=== PATIENT | female | born 1965 ===

== ENCOUNTER 2017-05-04 15:36 | Emergency (ER) | payer MEDICAID ==
[2017-05-04 15:50] VITALS: BMI 25.4
[2017-05-04 15:52] VITALS: TEMP 99; O2SAT 100
--- NOTE | 2017-05-04 16:03 | ED PDOC ---
Arrival/HPI - General Chief Complaint: Cough, Cold, Congestion Time Seen by Provider: 05/04/17 15:49 Historian: Patient - History of Present Illness Narrative History of Present Illness (Text): 05/04/17 16:03 51 y/o female, pmh including asthma/gastric bypass, nkda, post menopausal, c/o coughing and itching rash on the body x 2 days. Pt. stated that she has productive coughing, associated with itching hives on the body, no fever or chills, no night sweat, no recent traveling for the past 4 weeks, no night sweat , no numbness or tingling, no other medical or psychological complaints. 05/04/17 16:19 Past Medical History - Provider Review Nursing Documentation Reviewed: Yes - Infectious Disease Hx of Infectious Diseases: None - Tetanus Immunization Tetanus Immunization: Unknown - Cardiac Hx Cardiac Disorders: Yes Hx Hypertension: Yes (no longer since gastric sx) - Pulmonary Hx Respiratory Disorders: Yes Hx Asthma: Yes (never hospitalized) Hx Sleep Apnea: Yes (no longer) - Neurological Hx Neurological Disorder: No - HEENT Hx HEENT Disorder: No - Renal Hx Renal Disorder: No - Endocrine/Metabolic Hx Endocrine Disorders: Yes Hx Diabetes Mellitus Type 2: Yes (no longer since gastric sx) - Hematological/Oncological Hx Blood Disorders: Yes Hx Cancer: Yes (vulvar) - Integumentary Hx Dermatological Disorder: No - Musculoskeletal/Rheumatological Hx Musculoskeletal Disorders: No Hx Falls: No - Gastrointestinal Hx Gastrointestinal Disorders: Yes Hx Gastritis: Yes Hx Gastroesophageal Reflux: Yes - Genitourinary/Gynecological Hx Genitourinary Disorders: Yes Hx Reproductive Disorders: Yes (CANCER VULVA- resolved) Hx Urinary Tract Infection: Yes (1 year ago) - Psychiatric Hx Psychophysiologic Disorder: No Hx Depression: No Hx Substance Use: No - Past Surgical History Past Surgical History: Non-Contributing - Surgical History Hx Gastric Bypass Surgery: Yes (2014 , 2016) Hx Hysterectomy: Yes (oophorectomy bilat) - Anesthesia Hx Anesthesia: Yes Hx Anesthesia Reactions: No Hx Malignant Hyperthermia: No - Suicidal Assessment Feels Threatened In Home Enviroment: No Family/Social History - Physician Review Nursing Documentation Reviewed: Yes Family/Social History: Unknown Family HX Smoking Status: Never Smoked Hx Alcohol Use: No Hx Substance Use: No Hx Substance Use Treatment: No Allergies/Home Meds Allergies/Adverse Reactions: Allergies No Known Allergies Allergy (Verified 05/04/17 15:50) Home Medications: Home Meds Medication Instructions Recorded Confirmed oxyCODONE/Acetaminophen [Percocet 1 tab PO Q4 PRN 03/29/16 03/29/16 5/325 mg Tab] Review of Systems - Review of Systems Constitutional: absent: Fatigue, Fevers Eyes: absent: Vision Changes ENT: absent: Hearing Changes Respiratory: Cough, Sputum. absent: SOB, Wheezing Cardiovascular: absent: Chest Pain Gastrointestinal: absent: Abdominal Pain, Nausea, Vomiting Skin: Rash, Pruritis, Skin Lesions. absent: Laceration, Abscess, Ulcer, Cellulitis Psychiatric: absent: Anxiety, Depression, Suicidal Ideation Physical Exam Vital Signs Reviewed: Yes Vital Signs Temp Pulse Resp BP Pulse Ox 05/04/17 17:10 69 18 158/85 H 100 05/04/17 15:52 99.0 F 73 17 160/90 H 100 Temperature: Afebrile Blood Pressure: Hypertensive Pulse: Regular Respiratory Rate: Normal Appearance: Positive for: Well-Appearing, Non-Toxic, Comfortable Pain Distress: None Mental Status: Positive for: Alert and Oriented X 3 - Systems Exam Head: Present: Atraumatic, Normocephalic Pupils: Present: PERRL Extroacular Muscles: Present: EOMI Conjunctiva: Present: Normal Mouth: Present: Moist Mucous Membranes Neck: Present: Normal Range of Motion Respiratory/Chest: Present: Clear to Auscultation, Good Air Exchange. No: Respiratory Distress, Accessory Muscle Use Cardiovascular: Present: Regular Rate and Rhythm, Normal S1, S2, Other (no pedal edema). No: Murmurs Abdomen: Present: Normal Bowel Sounds. No: Tenderness, Distention, Peritoneal Signs, Rebound, Guarding Back: Present: Normal Inspection Upper Extremity: Present: Normal Inspection. No: Cyanosis, Edema Lower Extremity: Present: Normal Inspection. No: Edema Neurological: Present: GCS=15, Speech Normal, Motor Func Grossly Intact, Gait Normal, Memory Normal Skin: Present: Warm, Dry, Rashes (bilateral upper and lower extremities/chest/ back noted with uriticaria hives that's blanchable with no central insect bite johnson, no cellulitis or streaking, no ulcers. ), Normal Color Psychiatric: Present: Alert, Oriented x 3, Normal Insight, Normal Concentration Medical Decision Making ED Course and Treatment: 05/04/17 16:12 -labs -IVF/benadryl/pepcid/solumedrol -chest xray -observe and reassess 05/04/17 17:24 -Labs are non-significant -Chest xray show bronchial thickening with no consolidation, zithromycin 500mg po ordered. -Itching resolved, hives significantly resolved, lung is clear to ausucultate, will discharge home. -Discharge home with zithromax, prednisone, albuterol MDI, benadryl, pepcid, stay hydrated, bed rest, follow up with your own pmd and jewel flat surfacer within 2 days, return to the ER for any new or worsening signs or symptoms. - Lab Interpretations Lab Results: 05/04/17 16:15 05/04/17 16:50 Lab Results 05/04/17 16:50: Sodium 136, Potassium 3.6, Chloride 100, Carbon Dioxide 32, Anion Gap 8 L, BUN 16, Creatinine 0.6, Est GFR ( Amer) > 60, Est GFR (Non -Af Amer) > 60, Random Glucose 83, Calcium 9.0, Total Bilirubin 0.6, AST 27, ALT 34, Alkaline Phosphatase 77, Total Protein 7.0, Albumin 3.9, Globulin 3.1, Albumin/Globulin Ratio 1.3 05/04/17 16:15: WBC 6.2 D, RBC 4.42, Hgb 14.0, Hct 42.6, MCV 96.4, MCH 31.7, MCHC 32.9, RDW 13.3, Plt Count 191, MPV 11.0, Gran % 55.6, Lymph % (Auto) 32.7, [place] % (Auto) 8.5 H, Eos % (Auto) 2.9, Baso % (Auto) 0.3, Gran # 3.46, Lymph # 2.0, [place] # 0.5, Eos # 0.2, Baso # 0.02 I have reviewed the lab results: Yes Interpretation: No clinic. lab abnormalty - RAD Interpretation Radiology Orders: 05/04/17 16:08 CHEST PORTABLE [RAD] Stat no active disease Director News: Radiologist - Medication Orders Current Medication Orders: Discontinued Medications Azithromycin (Zithromax) 500 mg PO STAT STA PRN Reason: Protocol Stop: 05/04/17 17:25 Last Admin: 05/04/17 17:45 Dose: 500 mg Diphenhydramine HCl (Benadryl) 50 mg IVP STAT STA Stop: 05/04/17 16:09 Last Admin: 05/04/17 16:24 Dose: 50 mg Famotidine (Pepcid) 20 mg IVP STAT STA Stop: 05/04/17 16:09 Last Admin: 05/04/17 16:24 Dose: 20 mg Sodium Chloride (Sodium Chloride 0.9%) 1,000 mls @ 999 mls/hr IV .Q1H1M STA Stop: 05/04/17 17:08 Last Admin: 05/04/17 16:24 Dose: 999 mls/hr Methylprednisolone (Solu-Medrol) 125 mg IVP STAT STA Stop: 05/04/17 16:09 Last Admin: 05/04/17 16:24 Dose: 125 mg - 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 Disposition/Present on Arrival - Present on Arrival Any Indicators Present on Arrival: No History of DVT/PE: No History of Uncontrolled Diabetes: No Urinary Catheter: No History of Decub. Ulcer: No History Surgical Site Infection Following: Bariatric Surgery, None - Disposition Have Diagnosis and Disposition been Completed?: Yes Diagnosis: Hives, Bronchitis Disposition: HOME/ ROUTINE Disposition Time: 17:26 Patient Plan: Discharge Condition: IMPROVED Print Language: YORUBA Additional Instructions: Discharge home with zithromax, prednisone, albuterol MDI, benadryl, pepcid, stay hydrated, bed rest, follow up with your own pmd and jewel flat surfacer within 2 days, return to the ER for any new or worsening signs or symptoms. Prescriptions: Albuterol HFA [Ventolin HFA 90 mcg/actuation (8 g)] 2 puff IH [id number] PRN #1 in PRN Reason: Other Azithromycin [Zithromax] 250 mg PO DAILY #4 tab DiphenhydrAMINE [Benadryl] 50 mg PO QID PRN #20 cap PRN Reason: Other Famotidine [Pepcid] 20 mg PO BID #14 tab predniSONE [Prednisone] 2 tab PO DAILY #8 tab Referrals: Marguerite Resendiz DO [Primary Care Provider] - Follow up with primary Mariama Kuhn MD [Staff Provider] - Follow up with primary Forms: WORK NOTE
[2017-05-04] MEDS ORDERED: Sodium Chloride 0.9% 1,000 ML IV STA (16:08)
[2017-05-04] MEDS ORDERED: DiphenhydrAMINE 50 mg/ml Inj IVP STA (16:08)
[2017-05-04 16:22] LABS: ADD MANUAL DIFF? NO
[2017-05-04 16:25] LABS: BASO # 0.02 K/mm3 (0.0-2.0); BASO % 0.3 % (0.0-3.0); EOS # 0.2 (0.0-0.7); EOS % 2.9 % (1.5-5.0); GRAN # 3.46 (1.4-6.5); GRAN % 55.6 % (50.0-68.0); HEMATOCRIT 42.6 % (36.0-48.0); LYMPH % 32.7 % (22.0-35.0); MEAN CELL VOLUME 96.4 fL (80.0-105.0); MEAN CORPUSCULAR HEMOGLOBIN 31.7 pg (25.0-35.0); MEAN CORPUSCULAR HGB CONC 32.9 g/dl (31.0-37.0); MONO # 0.5 (0.1-0.6); MONO % 8.5 % (1.0-6.0); PLATELET COUNT 191 10^3/uL (120.0-450.0); RED CELL DISTRIBUTION WIDTH 13.3 % (11.5-14.5); WHITE BLOOD COUNT 6.2 10^3/ul (4.5-11.0)
[2017-05-04 17:11] VITALS: BP 158/85; PULSE 69; RESP 18
[2017-05-04 17:18] LABS: ALB/GLOB RATIO 1.3 (1.1-1.8); ALKALINE PHOSPHATASE 77 U/L (38-133); ALT/SGPT 34 U/L (7-56); AST/SGOT 27 U/L (15-39); BILIRUBIN,TOTAL 0.6 mg/dL (0.2-1.3); BLOOD UREA NITROGEN 16 mg/dL (7-21); CARBON DIOXIDE 32 mmol/L (21-33); CHLORIDE 100 mmol/L (98-107); GFR AFRICAN-AMERICAN > 60; GLUCOSE,RANDOM 83 mg/dL (70-110); POTASSIUM 3.6 mmol/L (3.6-5.0); SODIUM 136 mmol/L (132-148)
--- NOTE | 2017-05-04 18:53 | RAD ---
HISTORY: cough x 2 days COMPARISON: 09/17/2016. FINDINGS: LUNGS: No active pulmonary disease. PLEURA: No significant pleural effusion identified, no pneumothorax apparent. CARDIOVASCULAR: No radiographic findings to suggest acute or significant cardiovascular disease. OSSEOUS STRUCTURES: No significant abnormalities. VISUALIZED UPPER ABDOMEN: Normal. OTHER FINDINGS: None. IMPRESSION: No active disease. No significant interval change compared to the prior examination(s).
== END 2017-05-04 17:50 | disposition home or self-care (01) ==
LOC: ED 15:36
DX: J40 Bronchitis, not specified as acute or chronic (principal); L50.9 Urticaria, unspecified
CPT/HCPCS: 71010; 80053; 85025; 96374; 96375; 99283; J1200; J2930; J7040

== ENCOUNTER 2017-06-12 17:39 | Emergency (ER) | payer MEDICAID ==
[2017-06-12 17:51] VITALS: BP 161/94; PULSE 62; RESP 18; TEMP 97.8; O2SAT 99; BMI 28.3
--- NOTE | 2017-06-12 17:53 | ED PDOC ---
Arrival/HPI - General Chief Complaint: Back Pain Time Seen by Provider: 06/12/17 17:52 Historian: Patient - History of Present Illness Narrative History of Present Illness (Text): 06/12/17 18:06 This 51 yo female presents to this ED c/o b/l lower back pain, urinary frequency and urgency x 2 days. Patient also stated she had dysuria x 1 week ago. Denies sob, cp, rash, /GI incontinence, saddle anesthesias, urinary retention, dizziness, or rash Time/Duration: Other (see hpi) Context: Home Past Medical History - Provider Review Nursing Documentation Reviewed: Yes - Infectious Disease Hx of Infectious Diseases: None - Tetanus Immunization Tetanus Immunization: Unknown - Reproductive Menopause: Yes - Cardiac Hx Cardiac Disorders: Yes Hx Hypertension: Yes (no longer since gastric sx) - Pulmonary Hx Respiratory Disorders: Yes Hx Asthma: Yes (never hospitalized) Hx Sleep Apnea: Yes (no longer) - Neurological Hx Neurological Disorder: No - HEENT Hx HEENT Disorder: No - Renal Hx Renal Disorder: No - Endocrine/Metabolic Hx Endocrine Disorders: Yes Hx Diabetes Mellitus Type 2: Yes (no longer since gastric sx) - Hematological/Oncological Hx Blood Disorders: Yes Hx Cancer: Yes (vulvar) - Integumentary Hx Dermatological Disorder: No - Musculoskeletal/Rheumatological Hx Musculoskeletal Disorders: No Hx Falls: No - Gastrointestinal Hx Gastrointestinal Disorders: Yes Hx Gastritis: Yes Hx Gastroesophageal Reflux: Yes - Genitourinary/Gynecological Hx Genitourinary Disorders: Yes Hx Reproductive Disorders: Yes (CANCER VULVA- resolved) Hx Urinary Tract Infection: Yes (1 year ago) - Psychiatric Hx Psychophysiologic Disorder: No Hx Depression: No Hx Substance Use: No - Past Surgical History Past Surgical History: Non-Contributing - Surgical History Hx Gastric Bypass Surgery: Yes (2014 , 2016) Hx Hysterectomy: Yes (oophorectomy bilat) - Anesthesia Hx Anesthesia: Yes Hx Anesthesia Reactions: No Hx Malignant Hyperthermia: No - Suicidal Assessment Feels Threatened In Home Enviroment: No Family/Social History - Physician Review Nursing Documentation Reviewed: Yes Family/Social History: No Known Family HX Smoking Status: Never Smoked Hx Alcohol Use: No Hx Substance Use: No Hx Substance Use Treatment: No Allergies/Home Meds Allergies/Adverse Reactions: Allergies No Known Allergies Allergy (Verified 06/12/17 17:46) Review of Systems - Review of Systems Constitutional: Normal. absent: Fatigue, Weight Change, Fevers Eyes: Normal ENT: Normal. absent: Sore Throat Respiratory: Normal. absent: SOB, Cough Cardiovascular: Normal Gastrointestinal: Normal Genitourinary Female: Dysuria, Frequency. absent: Hematuria, Urine Output Changes, Vaginal Bleeding, Vaginal Discharge Musculoskeletal: Back Pain Skin: Normal. absent: Rash, Pruritis Neurological: Normal. absent: Headache, Dizziness Endocrine: Normal Hemo/Lymphatic: Normal Psychiatric: Normal Physical Exam Vital Signs Temp Pulse Resp BP Pulse Ox 06/12/17 17:49 97.8 F 62 18 161/94 H 99 Temperature: Afebrile Blood Pressure: Normal Pulse: Regular Respiratory Rate: Normal Appearance: Positive for: Well-Appearing, Non-Toxic, Comfortable Pain Distress: None Mental Status: Positive for: Alert and Oriented X 3 - Systems Exam Head: Present: Atraumatic, Normocephalic Pupils: Present: PERRL Extroacular Muscles: Present: EOMI Conjunctiva: Present: Normal Mouth: Present: Moist Mucous Membranes Neck: Present: Normal Range of Motion Respiratory/Chest: Present: Clear to Auscultation, Good Air Exchange. No: Respiratory Distress, Accessory Muscle Use Cardiovascular: Present: Regular Rate and Rhythm, Normal S1, S2. No: Murmurs Abdomen: Present: Tenderness (mild suprapubic tenderness), Normal Bowel Sounds. No: Distention, Peritoneal Signs, Rebound, Guarding, McBurney's Point Tender, Rovsing's Sign Present Back: Present: Normal Inspection. No: CVA Tenderness Upper Extremity: Present: Normal Inspection, Normal ROM, NORMAL PULSES, Neurovascularly Intact, Capillary Refill < 2s. No: Cyanosis, Edema Lower Extremity: Present: Normal Inspection, NORMAL PULSES, Normal ROM, Neurovascularly Intact, Capillary Refill < 2 s. No: Edema, CALF TENDERNESS, Temperature Abnormalties Neurological: Present: GCS=15, CN II-XII Intact, Speech Normal, Motor Func Grossly Intact, Normal Sensory Function, Normal Cerebellar Funct, Gait Normal, Memory Normal Skin: Present: Warm, Dry, Normal Color. No: Rashes Psychiatric: Present: Alert, Oriented x 3, Normal Insight, Normal Concentration Medical Decision Making ED Course and Treatment: 06/12/17 19:53 Re-evaluation. Patient feels better. Discussed results and plan with patient who expresses understanding. All questions answered and there is agreement with the plan to discharge home with instructions. Patient stable for discharge. Return if symptoms persist or worsen. Re-evaluation Time: 19:53 Reassessment Condition: Re-examined, Improved - Lab Interpretations Lab Results: Lab Results 06/12/17 18:20: Urine Color Yellow, Urine Appearance Clear, Urine pH 6.0, Ur Specific [place] <= 1.005, Urine Protein Negative, Urine Glucose (UA) Negative, Urine Ketones Negative, Urine Blood Trace-intact H, Urine Nitrate Negative, Urine Bilirubin Negative, Urine Urobilinogen 0.2, Ur Leukocyte Esterase Negative , Urine RBC 5 - 10, Urine WBC 2 - 5, Ur Epithelial Cells 6 - 8 - Medication Orders Current Medication Orders: Famotidine (Pepcid) 40 mg PO STAT STA Stop: 06/12/17 19:53 Discontinued Medications Cephalexin Monohydrate (Keflex) 500 mg PO STAT STA PRN Reason: Protocol Stop: 06/12/17 19:21 Last Admin: 06/12/17 19:44 Dose: 500 mg Naproxen (Anaprox Ds) 550 mg PO STAT STA Stop: 06/12/17 19:07 Last Admin: 06/12/17 19:44 Dose: 550 mg Ondansetron HCl (Zofran Odt) 8 mg PO STAT STA Stop: 06/12/17 19:53 Disposition/Present on Arrival - Present on Arrival Any Indicators Present on Arrival: No History of DVT/PE: No History of Uncontrolled Diabetes: No Urinary Catheter: No History of Decub. Ulcer: No History Surgical Site Infection Following: Bariatric Surgery, None - Disposition Have Diagnosis and Disposition been Completed?: Yes Diagnosis: Urinary tract infection Disposition: HOME/ ROUTINE Disposition Time: 19:55 Patient Plan: Discharge Patient Problems: Current Active Problems Problem Status Onset Urinary tract infection Acute Condition: GOOD Discharge Instructions (ExitCare): Urinary Tract Infection in Women (ED) Additional Instructions: Call Dr. Resendiz, for follow up visit and recheck and urine culture report in 2-3 days. Take medication as instructed with food. Return to emergency if symptoms worsen. Prescriptions: Cephalexin [cephalexin] 500 mg PO BID #10 cap Ondansetron ODT [Zofran ODT] 4 mg PO Q4H PRN #15 odt PRN Reason: Nausea/Vomiting Phenazopyridine HCl [Pyridium] 200 mg PO TID #6 tablet Referrals: Marguerite Resendiz DO [Primary Care Provider] - Follow up with primary
[2017-06-12 18:42] LABS: URINE BILIRUBIN NEGATIVE (NEGATIVE); URINE BLOOD TRACE-INTACT (NEGATIVE); URINE GLUCOSE (UA) NEGATIVE (NEGATIVE); URINE LEUKOCYTE ESTERASE NEGATIVE Leu/uL (NEGATIVE); URINE NITRATE NEGATIVE (NEGATIVE); URINE PROTEIN NEGATIVE mg/dL (<30 mg/dL); URINE UROBILINOGEN 0.2 E.U./dL (<1 E.U./dL)
[2017-06-12 18:43] LABS: URINE APPEARANCE CLEAR (CLEAR); URINE COLOR YELLOW (YELLOW)
[2017-06-12] MEDS ORDERED: Naproxen 550 mg Tab PO STA (19:06)
== END 2017-06-12 20:55 | disposition home or self-care (01) ==
LOC: ED 17:39
DX: N39.0 Urinary tract infection, site not specified (principal)

== ENCOUNTER 2019-02-03 15:57 | Emergency (ER) | payer MEDICAID | END 2019-02-03 17:58 | disposition home or self-care (01) | LOC: ED 15:57 ==

== ENCOUNTER 2019-03-17 16:14 | Emergency (ER) | payer MEDICAID ==
[2019-03-17 16:26] VITALS: BMI 28.3
[2019-03-17] MEDS ORDERED: TDAP Vaccine 0.5 mL Syr IM ONE (16:31)
--- NOTE | 2019-03-17 16:43 | ED PDOC ---
Arrival/HPI - General Chief Complaint: Trauma Time Seen by Provider: 03/17/19 16:21 Historian: Patient - History of Present Illness Narrative History of Present Illness (Text): 03/17/19 16:38 A 53 year old female presents to the emergency department with a complaint of an abrasion to the right knee and pain to the right 4th metatarsal of the foot. The patient notes that she was walking on the street when she tripped on uneven pavement. Patient reports pain and being unable to bear weight on the right foot. The patient denies any other injuries, head trauma/ LOC, fevers, chills, headache, dizziness, chest pain, shortness of breath, dyspnea on exertion, cough, abdominal pain, nausea, vomiting, diarrhea, back pain, neck pain, urinary/bowel changes, or any other complaint. Time/Duration: Prior to Arrival Symptom Course: Unchanged Activities at Onset: Rest, Light Context: Street Past Medical History - Provider Review Nursing Documentation Reviewed: Yes - Infectious Disease Hx of Infectious Diseases: None - Tetanus Immunization Tetanus Immunization: Unknown - Cardiac Hx Cardiac Disorders: Yes Hx Hypertension: Yes (no longer since gastric sx) - Pulmonary Hx Respiratory Disorders: Yes Hx Asthma: Yes (never hospitalized) Hx Sleep Apnea: Yes (no longer) - Neurological Hx Neurological Disorder: No - HEENT Hx HEENT Disorder: No - Renal Hx Renal Disorder: No - Endocrine/Metabolic Hx Endocrine Disorders: Yes Hx Diabetes Mellitus Type 2: Yes (no longer since gastric sx) - Hematological/Oncological Hx Blood Disorders: Yes Hx Cancer: Yes (vulvar) - Integumentary Hx Dermatological Disorder: No - Musculoskeletal/Rheumatological Hx Musculoskeletal Disorders: No Hx Falls: No - Gastrointestinal Hx Gastrointestinal Disorders: Yes Hx Gastritis: Yes Hx Gastroesophageal Reflux: Yes - Genitourinary/Gynecological Hx Genitourinary Disorders: Yes Hx Reproductive Disorders: Yes (CANCER VULVA- resolved) Hx Urinary Tract Infection: Yes - Psychiatric Hx Psychophysiologic Disorder: No Hx Depression: No Hx Substance Use: No - Past Surgical History Past Surgical History: Non-Contributing - Surgical History Hx Gastric Bypass Surgery: Yes (2014 , 2015) Hx Hysterectomy: Yes (oophorectomy bilat) - Anesthesia Hx Anesthesia: Yes Hx Anesthesia Reactions: No Hx Malignant Hyperthermia: No - Suicidal Assessment Feels Threatened In Home Enviroment: No Family/Social History - Physician Review Nursing Documentation Reviewed: Yes Family/Social History: No Known Family HX Smoking Status: Never Smoked Hx Alcohol Use: No Hx Substance Use: No Hx Substance Use Treatment: No Allergies/Home Meds Allergies/Adverse Reactions: Allergies No Known Allergies Allergy (Verified 02/03/19 16:10) Review of Systems - Physician Review All systems were reviewed & negative as marked: Yes - Review of Systems Constitutional: absent: Fevers Respiratory: absent: SOB, Cough Cardiovascular: absent: Chest Pain, WHITE Gastrointestinal: absent: Abdominal Pain, Stool Changes, Diarrhea, Nausea, Vom iting Genitourinary Female: absent: Urine Output Changes Musculoskeletal: Other (pain to 4th metatarsal of right foot. ). absent: Back Pain, Neck Pain Neurological: absent: Headache, Dizziness Physical Exam Vital Signs Reviewed: Yes Temperature: Afebrile Blood Pressure: Normal Pulse: Regular Respiratory Rate: Normal Appearance: Positive for: Well-Appearing, Non-Toxic, Comfortable Pain Distress: None Mental Status: Positive for: Alert and Oriented X 3 - Systems Exam Head: Present: Atraumatic, Normocephalic Pupils: Present: PERRL Extroacular Muscles: Present: EOMI Conjunctiva: Present: Normal Mouth: Present: Moist Mucous Membranes Neck: Present: Normal Range of Motion Respiratory/Chest: Present: Clear to Auscultation, Good Air Exchange. No: Respiratory Distress, Accessory Muscle Use Cardiovascular: Present: Regular Rate and Rhythm, Normal S1, S2. No: Murmurs Abdomen: No: Tenderness, Distention, Peritoneal Signs Back: Present: Normal Inspection Upper Extremity: Present: Normal Inspection. No: Cyanosis, Edema Lower Extremity: Present: NORMAL PULSES, Other (superficial abrasions noted on the toes. ). No: Edema Neurological: Present: GCS=15, CN II-XII Intact, Speech Normal Skin: Present: Warm, Dry, Normal Color. No: Rashes Psychiatric: Present: Alert, Oriented x 3, Normal Insight, Normal Concentration Medical Decision Making ED Course and Treatment: 03/17/19 16:44 Impression: A 53 year old female presents to the emergency department s/p fall with complaint of abrasion to right knee and pain to 4th metatarsal of left foot. Plan: -- Right Foot --Knee X- Ray -- Toradol --Boostrix Vaccine -- Reassess and disposition Progress Notes: 03/17/19 18:36 XR reviewed with no evidence of fracture or dislocation of the foot or knee. 03/17/19 18:41 On re-evaluation, patient feels better and is in no acute distress. I have discussed the results and plan with the patient, who expresses understanding. Patient in agreement with plan to be discharged home. Patient is stable for discharge. Patient was instructed to follow up with physician or return if symptoms worsen or new concerning symptoms arise. - RAD Interpretation Radiology Orders: 03/17/19 16:31 FOOT LEFT 3 VIEWS ROUTINE [RAD] Stat KNEE RIGHT 2 VIEWS (AP & LAT) [RAD] Stat - Medication Orders Current Medication Orders: Discontinued Medications Ketorolac Tromethamine (Toradol) 60 mg IM STAT STA Stop: 03/17/19 16:32 Tetanus/Reduced Diphtheria/Acell Pertussis (Boostrix Vaccine Inj) 0.5 ml IM .ONCE ONE Stop: 03/17/19 16:32 - Scribe Statement The provider has reviewed the documentation as recorded by the Scribe Hina Reed Provider Scribe Attestation: All medical record entries made by the Scribe were at my direction and personally dictated by me. I have reviewed the chart and agree that the record accurately reflects my personal performance of the history, physical exam, medical decision making, and the department course for this patient. I have also personally directed, reviewed, and agree with the discharge instructions and disposition. Disposition/Present on Arrival - Present on Arrival Any Indicators Present on Arrival: Yes History of DVT/PE: No History of Uncontrolled Diabetes: No Urinary Catheter: No History of Decub. Ulcer: No History Surgical Site Infection Following: Bariatric Surgery, None - Disposition Have Diagnosis and Disposition been Completed?: Yes Diagnosis: Fall, Abrasion of knee, right, Foot contusion Disposition: HOME/ ROUTINE Disposition Time: 18:34 Patient Plan: Discharge Patient Problems: Current Active Problems Problem Status Onset Fall Acute Abrasion of knee, right Acute Foot contusion Acute Condition: STABLE Discharge Instructions (ExitCare): Contusion (DC), Skin Abrasions (DC) Print Language: SAMI Additional Instructions: All medical record entries made by the Scribe were at my direction and personally dictated by me. I have reviewed the chart and agree that the record accurately reflects my personal performance of the history, physical exam, medical decision making, and the department course for this patient. I have also personally directed, reviewed, and agree with the discharge instructions and disposition. Please follow up with your PCP in 3-5 days Try to schedule an appointment with the bail bondsman in 1 week Prescriptions: Cyclobenzaprine [Cyclobenzaprine HCl] 10 mg PO Q6H #10 tab Naproxen 500 mg PO BID #10 tab Referrals: Marguerite Resendiz DO [Primary Care Provider] - Follow up with primary Forms: [employer] (Eth[place]ian)
[2019-03-17 16:51] VITALS: RESP 18; TEMP 98.2
[2019-03-17 19:02] VITALS: BP 137/80; PULSE 61; O2SAT 99
--- NOTE | 2019-03-18 11:29 | RAD ---
Date of service: 03/17/2019 PROCEDURE: Right Knee Radiographs. HISTORY: s/p fall COMPARISON: None. TECHNIQUE: 2 views obtained. FINDINGS: BONES: Normal. No fracture. JOINTS: Normal. No osteoarthritis. JOINT EFFUSION: None. OTHER FINDINGS: None. IMPRESSION: Normal radiographs of the right knee.
--- NOTE | 2019-03-18 11:29 | RAD ---
Date of service: 03/17/2019 PROCEDURE: Right Foot Radiographs. HISTORY: s/p fall COMPARISON: None. TECHNIQUE: 3 views obtained. FINDINGS: BONES: Normal. No fracture. JOINTS: Normal. SOFT TISSUES: Normal. OTHER FINDINGS: None. IMPRESSION: Normal right foot radiographs.
== END 2019-03-17 19:02 | disposition home or self-care (01) ==
LOC: ED 16:14
DX: S80.211A Abrasion, right knee, initial encounter (principal); S90.31XA Contusion of right foot, initial encounter; W01.0XXA Fall on same level from slipping, tripping and stumbling without subsequent striking against object, initial encounter; Y93.01 Activity, walking, marching and hiking; Y92.410 Unspecified street and highway as the place of occurrence of the external cause; E11.9 Type 2 diabetes mellitus without complications; I10 Essential (primary) hypertension; Z98.84 Bariatric surgery status; Z23 Encounter for immunization
CPT/HCPCS: 73560; 73630; 90471; 90715; 96372; 99284; J1885